=== PATIENT | female | born 1965 | race Caucasian/White ===

== ENCOUNTER 2021-03-10 20:23 | Emergency (ER) | payer OTHER ==
[2021-03-10 21:16] LABS: HEMOGLOBIN 14.6 gm/dl (12.3-15.3); RED BLOOD COUNT 4.57 M/UL (4.00-5.10); WHITE BLOOD COUNT 7.8 K/UL (4.5-11.0)
[2021-03-10 21:35] LABS: BUN/CREATININE RATIO 14 (0-10)
== END 2021-03-10 22:04 | disposition home or self-care (01) ==
LOC: ER1 20:23
PROVIDERS: Physician Assistant
DX: R10.12 Left upper quadrant pain (principal); R07.89 Other chest pain; B02.29 Other postherpetic nervous system involvement; F17.210 Nicotine dependence, cigarettes, uncomplicated
CPT/HCPCS: 71045; 80053; 82550; 82553; 83874; 84484; 85025; 85379; 96374; 99284; J2270

== ENCOUNTER 2021-06-21 10:31 | Emergency (ER) | payer OTHER | END 2021-06-21 11:38 | disposition home or self-care (01) | LOC: ER1 10:31 | DX: U07.1 COVID-19 (principal) | CPT/HCPCS: 99283; U0003 ==